=== PATIENT | female | born 1980 | race Caucasian/White ===

== ENCOUNTER → 2017-05-19 | Outpatient (CLI) | payer BC ==
[~2017-05-19] MED LIST: BIRTH CONTROL PO; HYDR1TAB PO; LORA10TA7 PO; MULT-974 PO; NORG1TAB56 PO; ONDAN4ODT PO
--- NOTE | 2017-05-19 16:40 | Diagnostic Imaging Report ---
CLINICAL INDICATION: Patient with low back pain for three weeks with no known injury. EXAM: X-ray of the lumbar spine, three views. COMPARISON: None. FINDINGS: Bowel gas obscures portions of the lumbar spine and sacrum/pelvis. No lumbar spine fracture or dislocation. There is mild left curvature of the thoracolumbar spine. Intervertebral disc heights are well maintained. The sacroiliac joints, sacrum, and visualized portions of the pelvis are unremarkable. IMPRESSION: 1: There is mild left curvature of the thoracolumbar spine. Otherwise, unremarkable x-ray of the lumbar spine. Dictated by: Dictated on workstation # [id number]
--- NOTE | 2017-05-19 16:41 | Diagnostic Imaging Report ---
INDICATION: Back pain, no known injury. FINDINGS: Symphyses and SI joints are unremarkable. Sacrococcygeal alignment appears normal. No fracture. IMPRESSION: Unremarkable sacrococcygeal radiographs. Dictated by: Dictated on workstation # [id number]
== END ==
LOC: RAD 16:07
PROVIDERS: ATTEND Nurse Practitioner
DX: M43.8X5 Other specified deforming dorsopathies, thoracolumbar region (principal)
CPT/HCPCS: 72100; 72220